=== PATIENT | female | born 1955 | race Asian ===

== ENCOUNTER 2019-09-27 14:10 | Inpatient (IN) | payer OTHER ==
[~2019-09-27] VITALS: Ht 157.5 cm; Wt 69.9 kg
[2019-09-27] MEDS ORDERED: BACL10TA PO (17:01)
[2019-09-27] MEDS ORDERED: DOCU100C36 PO (17:01)
[2019-09-27] MEDS ORDERED: CYAN-51 PO (17:01)
[2019-09-27] MEDS ORDERED: POLY17PO4 PO (17:01)
[2019-09-27] MEDS ORDERED: ATOR10TA PO (17:01)
[2019-09-27] MEDS ORDERED: LEVO25TA9 PO (17:01)
[2019-09-27] MEDS ORDERED: ENOX40DI SQ (17:01)
[2019-09-27] MEDS ORDERED: ACET-2154 PO (17:01)
[2019-09-27] MEDS ORDERED: OXYC5CAP18 PO (17:01)
[2019-09-27] MEDS ORDERED: TAMS-3 PO (17:01)
[2019-09-27] MEDS ORDERED: PYRI100T18 PO (17:01)
[2019-09-27] MEDS ORDERED: CHOL10002 PO (17:01)
[2019-09-27] MEDS ORDERED: GABA-534 PO (17:01)
[2019-09-27] MEDS ORDERED: METH-406 PO (17:01)
[2019-09-27] MEDS ORDERED: BISA10SU61 RC (17:01)
[2019-09-27] MEDS ORDERED: AMLO5TAB9 PO (17:01)
[2019-09-27] MEDS ORDERED: GABA-532 PO (17:01)
[2019-09-27] MEDS ORDERED: FOLI1CAP7 PO (17:01)
[2019-09-27] MEDS ORDERED: BISACODYL 10 MG SUPP.RECT RC PRN (17:45)
--- NOTE | 2019-09-27 18:08 | NUR ---
PATIENT S/P NEW ADMISSION AT 3:55PM VIA AMBULANCE WITH 2 EMT IN STABLE CONDITION. ALERT AND ORIENTED X4. NO COMPLAINT OF PAIN/DISCOMFORT. DX: S/P T4-6 MASS RESECTION, CORD COMPRESSION. ON ROOM AIR. NOT IN DISTRESS. SKIN INTACT EXCEPT FOR INCISION IN UPPER BACK WITH SUTURES. OPEN TO AIR. ON CONTROLLED CARBOHYDRATES. ASSESS BY THERAPIST. CONTINENT TO BOWEL AND BLADDER. AMBULATORY WITH ASSIST. TOLERATED WELL. WILL CONTINUE MONITOR
[2019-09-27] MEDS: METFORMIN HCL 500 MG TABLET PO SCH (19:21)
[2019-09-27] MEDS: METHOCARBAMOL 750 MG TABLET PO SCH (19:21)
[2019-09-27 19:27] VITALS: BP 121/77
--- NOTE | 2019-09-27 19:57 | NUR ---
Received patient in bed; AAO x4. Not in acute distress or SOB. Able to make needs known. On room air. No complaints of pain at this moment. Physical assessment done. Fall prevention observed. Safety measures maintained. Bed in low and lock position, alarm on, side rails up x2 for safety. Call light and frequently used items within reach. Will continue to monitor and give care.
[2019-09-27] MEDS: TAMSULOSIN HCL 0.4 MG CAP.SR.24H PO SCH (20:07)
[2019-09-27] MEDS: GABAPENTIN 300 MG CAPSULE PO SCH (20:13)
[2019-09-27] MEDS: ATORVASTATIN 10 MG TABLET PO SCH (20:13)
[2019-09-27] MEDS: ENOXAPARIN SODIUM 40 MG/0.4 ML DISP.SYRIN SQ SCH (20:14)
[2019-09-27 20:24] VITALS: BP 129/74
[2019-09-27] MEDS ORDERED: MAGNESIUM HYDROXIDE 30 ML LIQUID UDC PO PRN (21:00)
[2019-09-28] MEDS: METHOCARBAMOL 750 MG TABLET PO SCH ×5 (00:56→23:00)
[2019-09-28 04:30] VITALS: BP 130/77
[2019-09-28] MEDS: LEVOTHYROXINE SODIUM 100 MCG TABLET PO SCH (06:24)
[2019-09-28] MEDS ORDERED: LEVOTHYROXINE SODIUM 25 MCG TABLET PO SCH (07:30)
[2019-09-28] MEDS: DOCUSATE SODIUM 100 MG CAPSULE PO SCH ×2 (08:55→16:10)
[2019-09-28] MEDS: METFORMIN HCL 500 MG TABLET PO SCH ×2 (08:55→16:16)
[2019-09-28] MEDS: ACETAMINOPHEN 325 MG TABLET PO PRN (08:55)
[2019-09-28] MEDS: CHOLECALCIFEROL 1,000 UNIT TABLET PO SCH (08:56)
[2019-09-28] MEDS: AMLODIPINE 5 MG TABLET PO SCH (08:57)
[2019-09-28] MEDS: BACLOFEN 10 MG TABLET PO SCH ×3 (08:59→16:11)
[2019-09-28] MEDS ORDERED: FOLIC ACID/VITAMIN B COMP W-C TABLET PO SCH (09:00)
[2019-09-28] MEDS ORDERED: CYANOCOBALAMIN 1,000 MCG TABLET PO SCH (09:00)
[2019-09-28] MEDS: CYANOCOBALAMIN 100 MCG TABLET PO SCH (09:01)
[2019-09-28] MEDS: glipiZIDE 5 MG TABLET PO SCH (09:04)
[2019-09-28] MEDS: GABAPENTIN 100 MG CAPSULE PO SCH (09:04)
[2019-09-28] MEDS: PYRIDOXINE HCL 100 MG TABLET PO SCH (09:06)
[2019-09-28] MEDS: MIRALAX 17 GM POWD.PACK PO SCH (09:08)
[2019-09-28 09:40] VITALS: BP 116/70
--- NOTE | 2019-09-28 12:35 | NUR ---
C/O BURNING AND ITCHING WITH URGENCY AND FREQUENT URINATION. NOTIFIED MD ORDER FOR UA/C&S. NOTIFIED PT
[2019-09-28] MEDS ORDERED: FOLIC ACID 1MG PO (14:48)
[2019-09-28 15:52] VITALS: BP 111/66
[2019-09-28 16:58] LABS: *BILIRUBIN,URIN NEGATIVE (NEGATIVE); *BLOOD, URINE NEGATIVE (NEGATIVE); *CLARITY,URINE SLIGHTLY CLOUDY (CLEAR); *COLOR,URINE YELLOW (YELLOW); *KETONES,URINE TRACE (NEGATIVE); *UROBILINOGEN,URINE 0.2 E.U./dl (NORMAL); BACTERIA,URINE FEW /HPF (NONE SEEN); LEUKOCYTE ESTERASE ,URINE TRACE (NEGATIVE); NITRITE, URINE NEGATIVE (NEGATIVE); RBC,URINE 0-3 /HPF (0-3); SQUAMOUS EPITHELIAL CELL,UR MODERATE /HPF (NONE SEEN); UGLUCOSE NEGATIVE (NEGATIVE)
[2019-09-28 19:32] VITALS: BP 135/75
[2019-09-28] MEDS: GABAPENTIN 300 MG CAPSULE PO SCH (20:34)
[2019-09-28] MEDS: ATORVASTATIN 10 MG TABLET PO SCH (20:34)
[2019-09-28] MEDS: NITROFURANTOIN/NITROFURAN MAC 100 MG CAPSULE PO SCH (20:34)
[2019-09-28] MEDS: TAMSULOSIN HCL 0.4 MG CAP.SR.24H PO SCH (20:34)
[2019-09-28] MEDS: ENOXAPARIN SODIUM 40 MG/0.4 ML DISP.SYRIN SQ SCH (20:44)
[2019-09-29 06:00] VITALS: BP 108/69
[2019-09-29] MEDS: LEVOTHYROXINE SODIUM 100 MCG TABLET PO SCH (06:38)
[2019-09-29] MEDS: METHOCARBAMOL 750 MG TABLET PO SCH ×3 (06:38→18:09)
[2019-09-29 07:08] LABS: BASOPHILS % (AUTO) 0.4 % (0.0-2.0); EOSINOPHILS # (AUTO) 0.3 K/uL (0.0-0.7); EOSINOPHILS % (AUTO) 3.3 % (0.0-7.0); HEMATOCRIT 27.8 % (31.2-41.9); HEMOGLOBIN 9.2 g/dL (10.9-14.3); LYMPHOCYTES # (AUTO) 2.1 K/uL (20.0-40.0); LYMPHOCYTES % (AUTO) 24.4 % (20.5-51.5); MEAN CORPUSCULAR HEMOGLOBIN 30.4 uug (24.7-32.8); MEAN CORPUSCULAR HGB CONC 33 g/dL (32.3-35.6); MEAN CORPUSCULAR VOLUME 92.3 fL (75.5-95.3); MONOCYTES # (AUTO) 0.5 K/uL (2.0-10.0); MONOCYTES % (AUTO) 6.4 % (0.0-11.0); NEUTROPHILS # (AUTO) 5.6 K/uL (1.8-8.9); NEUTROPHILS % (AUTO) 65.5 % (38.5-71.5); PLATELET COUNT (AUTO) 241 K/uL (179-408); RED BLOOD CELL COUNT(AUTO) 3.01 MIL/uL (3.63-4.92); WHITE BLOOD COUNT (AUTO) 8.5 K/uL (3.8-11.8)
[2019-09-29 07:23] LABS: THYROID STIMULATING HORMONE 22.836 mIU/mL (0.358-3.740)
[2019-09-29 07:40] LABS: BILIRUBIN,TOTAL 0.7 mg/dL (0.2-1.0); CREATININE 0.8 mg/dL (0.6-1.3); MAGNESIUM 1.7 mg/dL (1.8-2.4); PHOSPHOROUS 3.3 mg/dL (2.5-4.9); POTASSIUM 3.8 mmol/L (3.5-5.1); TOTAL PROTEIN, SERUM 6.2 g/dL (6.4-8.2)
[2019-09-29] MEDS ORDERED: INSULIN REGULAR, HUMAN 300 UNIT/3 ML VIAL SQ PRN (07:45)
[2019-09-29] MEDS ORDERED: DEXTROSE 50% 50 ML DISP.SYRIN IV PRN (07:45)
[2019-09-29] MEDS: glipiZIDE 5 MG TABLET PO SCH (09:00)
[2019-09-29] MEDS: AMLODIPINE 5 MG TABLET PO SCH (09:00)
[2019-09-29] MEDS: MIRALAX 17 GM POWD.PACK PO SCH (09:00)
[2019-09-29] MEDS: METFORMIN HCL 500 MG TABLET PO SCH ×2 (09:12→18:09)
[2019-09-29] MEDS: NITROFURANTOIN/NITROFURAN MAC 100 MG CAPSULE PO SCH ×2 (09:13→20:20)
[2019-09-29] MEDS: BACLOFEN 10 MG TABLET PO SCH ×3 (09:14→18:09)
[2019-09-29] MEDS: GABAPENTIN 100 MG CAPSULE PO SCH (09:14)
[2019-09-29] MEDS: DOCUSATE SODIUM 100 MG CAPSULE PO SCH ×2 (09:24→18:09)
[2019-09-29] MEDS: FERROUS GLUCONATE 324 MG TABLET PO SCH ×2 (09:25→20:33)
[2019-09-29] MEDS: PYRIDOXINE HCL 100 MG TABLET PO SCH (09:26)
[2019-09-29] MEDS: CHOLECALCIFEROL 1,000 UNIT TABLET PO SCH (09:27)
[2019-09-29] MEDS: CYANOCOBALAMIN 100 MCG TABLET PO SCH (09:27)
[2019-09-29] MEDS: FOLIC ACID 1 MG TABLET PO SCH (10:46)
[2019-09-29] MEDS: BLOOD SUGAR DIAGNOSTIC 1 EACH STRIP VI SCH ×3 (11:37→20:24)
[2019-09-29] MEDS ORDERED: MAGNESIUM OXIDE 400 MG TABLET PO ONE (12:00)
[2019-09-29 14:00] VITALS: BP 117/67
--- NOTE | 2019-09-29 19:30 | NUR ---
Patient received in chair. Alert and oriented x 4. States that she is unable to make it to the bathroom without peeing herself. Suggested diaper for patient just increase she isn't able to make it to the bathroom again, and patient agreed. Assisted to bed. C/O pain in back. Will medicate. Surgical site clean and opened to air. No redness noted. Call light and frequently used items within reach. Will continue to monitor.
[2019-09-29 19:44] VITALS: BP 129/82
[2019-09-29] MEDS: GABAPENTIN 300 MG CAPSULE PO SCH (20:20)
[2019-09-29] MEDS: TAMSULOSIN HCL 0.4 MG CAP.SR.24H PO SCH (20:20)
[2019-09-29] MEDS: ATORVASTATIN 10 MG TABLET PO SCH (20:20)
[2019-09-29] MEDS: ENOXAPARIN SODIUM 40 MG/0.4 ML DISP.SYRIN SQ SCH (20:29)
[2019-09-30] MEDS: METHOCARBAMOL 750 MG TABLET PO SCH ×5 (00:53→23:47)
[2019-09-30 05:30] VITALS: BP 124/72
[2019-09-30] MEDS ORDERED: LEVOTHYROXINE SODIUM 125 MCG TABLET ONE (06:23)
[2019-09-30] MEDS: LEVOTHYROXINE SODIUM 125 MCG TABLET PO SCH (06:28)
[2019-09-30] MEDS: BLOOD SUGAR DIAGNOSTIC 1 EACH STRIP VI SCH ×4 (06:33→21:19)
[2019-09-30] MEDS ORDERED: glipiZIDE 5 MG TABLET PO SCH (07:00)
[2019-09-30] MEDS: METFORMIN HCL 500 MG TABLET PO SCH ×2 (08:45→18:13)
[2019-09-30] MEDS: CHOLECALCIFEROL 1,000 UNIT TABLET PO SCH (08:45)
[2019-09-30] MEDS: DOCUSATE SODIUM 100 MG CAPSULE PO SCH ×2 (08:45→18:14)
[2019-09-30] MEDS: PYRIDOXINE HCL 100 MG TABLET PO SCH (08:46)
[2019-09-30] MEDS: AMLODIPINE 5 MG TABLET PO SCH (08:46)
[2019-09-30] MEDS: GABAPENTIN 100 MG CAPSULE PO SCH (08:47)
[2019-09-30] MEDS: FOLIC ACID 1 MG TABLET PO SCH (08:47)
[2019-09-30] MEDS: CYANOCOBALAMIN 100 MCG TABLET PO SCH (08:47)
[2019-09-30] MEDS: NITROFURANTOIN/NITROFURAN MAC 100 MG CAPSULE PO SCH ×2 (08:48→21:16)
[2019-09-30] MEDS: FERROUS GLUCONATE 324 MG TABLET PO SCH ×2 (08:48→21:17)
[2019-09-30] MEDS: BACLOFEN 10 MG TABLET PO SCH ×3 (08:48→17:00)
[2019-09-30] MEDS: OXYCODONE/APAP 5-325 MG TABLET PO PRN (08:55)
[2019-09-30] MEDS: MIRALAX 17 GM POWD.PACK PO SCH (09:21)
--- NOTE | 2019-09-30 10:15 | NUR ---
INDIVIDUALIZE OVERALL PLAN OF CARE
--- NOTE | 2019-09-30 19:30 | NUR ---
Received patient awake, alert and orient x 4, verbally responsive. standing beside her bed with FWW in front of her. Denies any pain/discomforts at this time. Safety measures and fall prevention observed. Continue care as planned.
[2019-09-30 20:32] VITALS: BP 113/62
[2019-09-30] MEDS: ENOXAPARIN SODIUM 40 MG/0.4 ML DISP.SYRIN SQ SCH (21:15)
[2019-09-30] MEDS: ATORVASTATIN 10 MG TABLET PO SCH (21:16)
[2019-09-30] MEDS: TAMSULOSIN HCL 0.4 MG CAP.SR.24H PO SCH (21:16)
[2019-09-30] MEDS: GABAPENTIN 300 MG CAPSULE PO SCH (21:16)
[2019-10-01] MEDS: METHOCARBAMOL 750 MG TABLET PO SCH ×4 (05:53→23:27)
[2019-10-01] MEDS: LEVOTHYROXINE SODIUM 125 MCG TABLET PO SCH (06:00)
[2019-10-01] MEDS: BLOOD SUGAR DIAGNOSTIC 1 EACH STRIP VI SCH ×2 (06:01→11:08)
--- NOTE | 2019-10-01 06:13 | NUR ---
Shift End Report: Vs stable. BS WNL. No complaint of pain/discomforts presented. Slept good. No fall/injury reported. All needs attended and met. No significant event reported throughout the night. Had an early bed bath today, tolerated well. Continue current rehab plan of care.
[2019-10-01] MEDS ORDERED: glipiZIDE 5 MG TABLET PO SCH (07:00)
[2019-10-01 07:12] VITALS: BP 115/74
[2019-10-01 08:13] VITALS: BP 122/71
[2019-10-01] MEDS: GABAPENTIN 100 MG CAPSULE PO SCH (08:18)
[2019-10-01] MEDS: METFORMIN HCL 500 MG TABLET PO SCH ×2 (08:18→17:01)
[2019-10-01] MEDS: AMLODIPINE 5 MG TABLET PO SCH (08:18)
[2019-10-01] MEDS: CHOLECALCIFEROL 1,000 UNIT TABLET PO SCH (08:18)
[2019-10-01] MEDS: FOLIC ACID 1 MG TABLET PO SCH (08:18)
[2019-10-01] MEDS: FERROUS GLUCONATE 324 MG TABLET PO SCH ×2 (08:19→20:32)
[2019-10-01] MEDS: PYRIDOXINE HCL 100 MG TABLET PO SCH (08:19)
[2019-10-01] MEDS: BACLOFEN 10 MG TABLET PO SCH ×3 (08:19→16:15)
[2019-10-01] MEDS: MIRALAX 17 GM POWD.PACK PO SCH (08:19)
[2019-10-01] MEDS: DOCUSATE SODIUM 100 MG CAPSULE PO SCH ×2 (08:19→16:15)
[2019-10-01] MEDS: CYANOCOBALAMIN 100 MCG TABLET PO SCH (08:20)
--- NOTE | 2019-10-01 12:47 | NUR ---
Received patient awake in bed in stable condition. Continue therapy for ambulation and ADL ability. Continue pain management if needed. tolerated well. not in distress. will continue monitor
[2019-10-01] MEDS: HYDROCHLOROTHIAZIDE 12.5 MG CAPSULE PO SCH (13:13)
--- NOTE | 2019-10-01 16:06 | NUR ---
Patient complaint of chest pain. MD Broderick notified. ordered EKG and troponin STAR. EKG done with sinus rhythm result. no complaint of pain/discomfort as of this time. will continue monitor
[2019-10-01 16:30] VITALS: BP 123/71
[2019-10-01] MEDS: OXYCODONE/APAP 5-325 MG TABLET PO PRN (18:35)
--- NOTE | 2019-10-01 19:30 | NUR ---
Sleeping during initial rounds. No s/s of respiratory distress noted. HOB slightly elevated. Safety measure and fall prevention maintained. Continue care as planned.
[2019-10-01 19:50] VITALS: BP 117/70
[2019-10-01] MEDS: ATORVASTATIN 10 MG TABLET PO SCH (20:32)
[2019-10-01] MEDS: TAMSULOSIN HCL 0.4 MG CAP.SR.24H PO SCH (20:32)
[2019-10-01] MEDS: ENOXAPARIN SODIUM 40 MG/0.4 ML DISP.SYRIN SQ SCH (20:32)
[2019-10-01] MEDS: GABAPENTIN 300 MG CAPSULE PO SCH (20:32)
[2019-10-02 04:35] VITALS: BP 110/65
[2019-10-02] MEDS: METHOCARBAMOL 750 MG TABLET PO SCH ×4 (06:10→23:19)
[2019-10-02] MEDS: LEVOTHYROXINE SODIUM 125 MCG TABLET PO SCH (06:10)
--- NOTE | 2019-10-02 06:44 | NUR ---
Shift End Report: VS stable. Slept well. No complaint presented all night. All needs attended and met. No significant event reported. Continue current rehab plan of care.
[2019-10-02] MEDS: FOLIC ACID 1 MG TABLET PO SCH (08:17)
[2019-10-02] MEDS: METFORMIN HCL 500 MG TABLET PO SCH ×2 (08:18→17:33)
[2019-10-02] MEDS: CHOLECALCIFEROL 1,000 UNIT TABLET PO SCH (08:20)
[2019-10-02] MEDS: MIRALAX 17 GM POWD.PACK PO SCH (08:22)
[2019-10-02] MEDS: OXYCODONE/APAP 5-325 MG TABLET PO PRN (08:22)
[2019-10-02] MEDS: glipiZIDE 5 MG TABLET PO SCH (08:23)
[2019-10-02] MEDS: FERROUS GLUCONATE 324 MG TABLET PO SCH ×2 (08:24→20:44)
[2019-10-02] MEDS: CYANOCOBALAMIN 100 MCG TABLET PO SCH (08:24)
[2019-10-02] MEDS: BACLOFEN 10 MG TABLET PO SCH ×3 (08:25→17:33)
[2019-10-02] MEDS: GABAPENTIN 100 MG CAPSULE PO SCH (08:25)
[2019-10-02] MEDS: PYRIDOXINE HCL 100 MG TABLET PO SCH (08:26)
[2019-10-02] MEDS: DOCUSATE SODIUM 100 MG CAPSULE PO SCH ×2 (08:26→17:33)
[2019-10-02] MEDS: AMLODIPINE 5 MG TABLET PO SCH (09:00)
[2019-10-02 16:10] VITALS: BP 99/55
--- NOTE | 2019-10-02 19:30 | NUR ---
Received patient in bed, awake, denied any pain/discomforts at this time. Denied lightheadedness/dizziness at this time. Safety measures and fall prevention maintained. Continue care as planned.
[2019-10-02 20:41] VITALS: BP 114/60
[2019-10-02] MEDS: ATORVASTATIN 10 MG TABLET PO SCH (20:44)
[2019-10-02] MEDS: TAMSULOSIN HCL 0.4 MG CAP.SR.24H PO SCH (20:44)
[2019-10-02] MEDS: GABAPENTIN 300 MG CAPSULE PO SCH (20:44)
[2019-10-02] MEDS: ENOXAPARIN SODIUM 40 MG/0.4 ML DISP.SYRIN SQ SCH (20:45)
--- NOTE | 2019-10-03 05:20 | NUR ---
Shift End Report: Vs stable. Slept good. No complaint reported all night. All needs attended and met. No significant event reported all night. Continue current rehab plan of care.
[2019-10-03] MEDS: METHOCARBAMOL 750 MG TABLET PO SCH ×3 (05:40→17:23)
[2019-10-03 05:50] VITALS: BP 116/68
[2019-10-03] MEDS: LEVOTHYROXINE SODIUM 125 MCG TABLET PO SCH (06:11)
[2019-10-03 07:48] VITALS: BP 148/58
[2019-10-03] MEDS: METFORMIN HCL 500 MG TABLET PO SCH ×2 (08:21→17:22)
[2019-10-03] MEDS: DOCUSATE SODIUM 100 MG CAPSULE PO SCH ×2 (08:21→17:00)
[2019-10-03] MEDS: MIRALAX 17 GM POWD.PACK PO SCH (08:22)
[2019-10-03] MEDS: CHOLECALCIFEROL 1,000 UNIT TABLET PO SCH (08:22)
[2019-10-03] MEDS: FOLIC ACID 1 MG TABLET PO SCH (08:24)
[2019-10-03] MEDS: GABAPENTIN 100 MG CAPSULE PO SCH (08:26)
[2019-10-03] MEDS: glipiZIDE 5 MG TABLET PO SCH (08:26)
[2019-10-03] MEDS: FERROUS GLUCONATE 324 MG TABLET PO SCH ×2 (08:28→20:57)
[2019-10-03] MEDS: CYANOCOBALAMIN 100 MCG TABLET PO SCH (08:30)
[2019-10-03] MEDS: HYDROCHLOROTHIAZIDE 12.5 MG CAPSULE PO SCH (08:31)
[2019-10-03] MEDS: PYRIDOXINE HCL 100 MG TABLET PO SCH (08:32)
[2019-10-03] MEDS: AMLODIPINE 5 MG TABLET PO SCH (08:32)
[2019-10-03] MEDS: OXYCODONE/APAP 5-325 MG TABLET PO PRN (08:39)
[2019-10-03 15:33] VITALS: BP 110/64
--- NOTE | 2019-10-03 17:39 | NUR ---
Patient alert, oriented x 4, not in any form of distress. No significant change noted during the shift. Patient complained of back pain and given PRN pain medication as ordered with noted relief. Given PRN MOM for no BM x 3 days and noted BM. Needs attended to promptly and met. Call light and frequently used items placed within reach.
--- NOTE | 2019-10-03 19:30 | NUR ---
Patient received in chair. Alert and oriented x 4. Assisted to bed. No C/O pain or SOB at this time. Surgical site clean and opened to air. No redness noted. Call light and frequently used items within reach. Will continue to monitor.
[2019-10-03 20:25] VITALS: BP 100/53
[2019-10-03] MEDS: TAMSULOSIN HCL 0.4 MG CAP.SR.24H PO SCH (20:57)
[2019-10-03] MEDS: ATORVASTATIN 10 MG TABLET PO SCH (20:58)
[2019-10-03] MEDS: GABAPENTIN 300 MG CAPSULE PO SCH (20:58)
[2019-10-03] MEDS: ENOXAPARIN SODIUM 40 MG/0.4 ML DISP.SYRIN SQ SCH (21:01)
[2019-10-04] MEDS: METHOCARBAMOL 750 MG TABLET PO SCH ×4 (00:40→17:01)
[2019-10-04 05:51] VITALS: BP 100/62
[2019-10-04] MEDS: LEVOTHYROXINE SODIUM 125 MCG TABLET PO SCH (06:06)
[2019-10-04 07:55] VITALS: BP 98/60
[2019-10-04] MEDS: METFORMIN HCL 500 MG TABLET PO SCH ×2 (08:37→17:01)
[2019-10-04] MEDS: FERROUS GLUCONATE 324 MG TABLET PO SCH ×2 (08:37→20:39)
[2019-10-04] MEDS: CYANOCOBALAMIN 100 MCG TABLET PO SCH (08:37)
[2019-10-04] MEDS: ACETAMINOPHEN 325 MG TABLET PO PRN (08:38)
[2019-10-04] MEDS: CHOLECALCIFEROL 1,000 UNIT TABLET PO SCH (08:38)
[2019-10-04] MEDS: DOCUSATE SODIUM 100 MG CAPSULE PO SCH ×2 (08:38→16:57)
[2019-10-04] MEDS: PYRIDOXINE HCL 100 MG TABLET PO SCH (08:39)
[2019-10-04] MEDS: GABAPENTIN 100 MG CAPSULE PO SCH (08:39)
[2019-10-04] MEDS: glipiZIDE 5 MG TABLET PO SCH (08:39)
[2019-10-04] MEDS: AMLODIPINE 5 MG TABLET PO SCH (08:40)
[2019-10-04] MEDS: MIRALAX 17 GM POWD.PACK PO SCH (08:42)
[2019-10-04] MEDS: FOLIC ACID 1 MG TABLET PO SCH (09:12)
--- NOTE | 2019-10-04 10:33 | NUR ---
INTERDISCIPLINARY TEAM CONFERENCE
--- NOTE | 2019-10-04 15:07 | NUR ---
Received patient awake in bed in stable condition. Continue pain management prior to therapy and if needed. not in distress. will continue monitor
[2019-10-04 16:25] VITALS: BP 104/65
--- NOTE | 2019-10-04 19:30 | NUR ---
Patient alert and oriented x 4. Assisted to bed. No C/O pain or SOB at this time. Surgical site clean and opened to air. No redness noted. Patient requesting gas relief medication. Will contact MD. Call light and frequently used items within reach. Will continue to monitor.
[2019-10-04] MEDS: TAMSULOSIN HCL 0.4 MG CAP.SR.24H PO SCH (20:39)
[2019-10-04] MEDS: GABAPENTIN 300 MG CAPSULE PO SCH (20:39)
[2019-10-04] MEDS: ATORVASTATIN 10 MG TABLET PO SCH (20:39)
[2019-10-04] MEDS: ENOXAPARIN SODIUM 40 MG/0.4 ML DISP.SYRIN SQ SCH (20:45)
[2019-10-04 21:05] VITALS: BP 104/69
[2019-10-04] MEDS: SIMETHICONE 80 MG TAB.CHEW PO PRN (21:35)
[2019-10-05] MEDS: METHOCARBAMOL 750 MG TABLET PO SCH ×4 (00:11→17:01)
[2019-10-05 05:31] VITALS: BP 111/66
[2019-10-05] MEDS: LEVOTHYROXINE SODIUM 125 MCG TABLET PO SCH (06:12)
[2019-10-05 08:01] VITALS: BP 110/67
[2019-10-05] MEDS: ACETAMINOPHEN 325 MG TABLET PO PRN (08:13)
[2019-10-05] MEDS: AMLODIPINE 5 MG TABLET PO SCH (08:14)
[2019-10-05] MEDS: CHOLECALCIFEROL 1,000 UNIT TABLET PO SCH (08:14)
[2019-10-05] MEDS: GABAPENTIN 100 MG CAPSULE PO SCH (08:15)
[2019-10-05] MEDS: FERROUS GLUCONATE 324 MG TABLET PO SCH ×2 (08:15→20:00)
[2019-10-05] MEDS: PYRIDOXINE HCL 100 MG TABLET PO SCH (08:15)
[2019-10-05] MEDS: glipiZIDE 5 MG TABLET PO SCH (08:16)
[2019-10-05] MEDS: METFORMIN HCL 500 MG TABLET PO SCH ×2 (08:16→17:01)
[2019-10-05] MEDS: FOLIC ACID 1 MG TABLET PO SCH (08:16)
[2019-10-05] MEDS: DOCUSATE SODIUM 100 MG CAPSULE PO SCH ×2 (08:16→17:00)
[2019-10-05] MEDS: HYDROCHLOROTHIAZIDE 12.5 MG CAPSULE PO SCH (08:19)
[2019-10-05] MEDS: MIRALAX 17 GM POWD.PACK PO SCH (08:19)
[2019-10-05] MEDS: CYANOCOBALAMIN 100 MCG TABLET PO SCH (08:25)
--- NOTE | 2019-10-05 14:41 | NUR ---
Patient c/o dizziness and fatigue. BS check, and found to <50. Juice and sandwish given. Rechecked 10 minutes later. Found to 68. More juice, crackers, and sandwiches given. BS rechecked another 10 minutes later and found to be 99. Will continue to monitor.
[2019-10-05 15:06] VITALS: BP 126/71
--- NOTE | 2019-10-05 16:05 | NUR ---
Received patient in WC; AAO x4. Not in acute distress or SOB. Able to make needs known. On room air. No complaints of pain at this moment. Physical assessment done. Fall prevention observed. Safety measures maintained. Call light and frequently used items within reach. Will continue to monitor and give care.
[2019-10-05 19:57] VITALS: BP 103/57
[2019-10-05] MEDS: ATORVASTATIN 10 MG TABLET PO SCH (20:00)
[2019-10-05] MEDS: TAMSULOSIN HCL 0.4 MG CAP.SR.24H PO SCH (20:00)
[2019-10-05] MEDS: GABAPENTIN 300 MG CAPSULE PO SCH (20:00)
[2019-10-05] MEDS: ENOXAPARIN SODIUM 40 MG/0.4 ML DISP.SYRIN SQ SCH (20:04)
--- NOTE | 2019-10-06 00:23 | NUR ---
Patient refused Robaxin x3 times; explained risks and benefits, still refused. Will monitor patient
[2019-10-06 04:00] VITALS: BP 111/67
[2019-10-06] MEDS: METHOCARBAMOL 750 MG TABLET PO SCH ×5 (06:13→23:24)
[2019-10-06] MEDS: LEVOTHYROXINE SODIUM 125 MCG TABLET PO SCH (06:13)
[2019-10-06] MEDS: DOCUSATE SODIUM 100 MG CAPSULE PO SCH ×2 (08:30→17:34)
[2019-10-06] MEDS: FERROUS GLUCONATE 324 MG TABLET PO SCH ×2 (08:30→20:29)
[2019-10-06] MEDS: METFORMIN HCL 500 MG TABLET PO SCH ×2 (08:30→17:34)
[2019-10-06] MEDS: FOLIC ACID 1 MG TABLET PO SCH (08:31)
[2019-10-06] MEDS: glipiZIDE 5 MG TABLET PO SCH (08:32)
[2019-10-06] MEDS: MIRALAX 17 GM POWD.PACK PO SCH (08:32)
[2019-10-06] MEDS: AMLODIPINE 5 MG TABLET PO SCH (08:33)
[2019-10-06] MEDS: GABAPENTIN 100 MG CAPSULE PO SCH (08:33)
[2019-10-06] MEDS: CYANOCOBALAMIN 100 MCG TABLET PO SCH (08:33)
[2019-10-06] MEDS: PYRIDOXINE HCL 100 MG TABLET PO SCH (08:34)
[2019-10-06] MEDS: CHOLECALCIFEROL 1,000 UNIT TABLET PO SCH (08:34)
[2019-10-06 08:44] VITALS: BP 113/71
[2019-10-06 16:00] VITALS: BP 114/52
[2019-10-06 20:09] VITALS: BP 107/62
[2019-10-06] MEDS: GABAPENTIN 300 MG CAPSULE PO SCH (20:28)
[2019-10-06] MEDS: ATORVASTATIN 10 MG TABLET PO SCH (20:28)
[2019-10-06] MEDS: TAMSULOSIN HCL 0.4 MG CAP.SR.24H PO SCH (20:28)
[2019-10-06] MEDS: SIMETHICONE 80 MG TAB.CHEW PO PRN (20:28)
[2019-10-06] MEDS: ENOXAPARIN SODIUM 40 MG/0.4 ML DISP.SYRIN SQ SCH (20:35)
--- NOTE | 2019-10-06 21:22 | NUR ---
resting in bed upon rounds. aaox4 OOB to the BR Voiding freely. Needs attended. VSS Fall precautions maintained. Siderails up for safety. Upper back incision JULISSA with sutures intact.Denies any pain nor any discomfort at this time. Will monitor patient.
[2019-10-07 05:47] VITALS: BP 109/64
[2019-10-07] MEDS: LEVOTHYROXINE SODIUM 125 MCG TABLET PO SCH (06:09)
[2019-10-07] MEDS: METHOCARBAMOL 750 MG TABLET PO SCH ×4 (06:17→23:17)
--- NOTE | 2019-10-07 06:31 | NUR ---
quiet night. slept well most of the shift. no complaints presented during shift. ambulates to the BR with walker with supervision. Voiding well. Needs attended. fall precautions maintained. Tolerated po meds well. No acute distress noted. VSS.
[2019-10-07] MEDS: DOCUSATE SODIUM 100 MG CAPSULE PO SCH ×2 (08:38→17:39)
[2019-10-07] MEDS: CHOLECALCIFEROL 1,000 UNIT TABLET PO SCH (08:38)
[2019-10-07] MEDS: FOLIC ACID 1 MG TABLET PO SCH (08:38)
[2019-10-07] MEDS: METFORMIN HCL 500 MG TABLET PO SCH ×2 (08:38→17:39)
[2019-10-07] MEDS: AMLODIPINE 5 MG TABLET PO SCH (08:38)
[2019-10-07] MEDS: GABAPENTIN 100 MG CAPSULE PO SCH (08:39)
[2019-10-07] MEDS: FERROUS GLUCONATE 324 MG TABLET PO SCH ×2 (08:39→20:30)
[2019-10-07] MEDS: MIRALAX 17 GM POWD.PACK PO SCH (08:40)
[2019-10-07] MEDS: HYDROCHLOROTHIAZIDE 12.5 MG CAPSULE PO SCH (08:41)
[2019-10-07] MEDS: CYANOCOBALAMIN 100 MCG TABLET PO SCH (08:41)
[2019-10-07] MEDS: PYRIDOXINE HCL 100 MG TABLET PO SCH (08:42)
[2019-10-07 09:53] VITALS: BP 117/71
[2019-10-07 16:00] VITALS: BP 122/69
[2019-10-07] MEDS: ACETAMINOPHEN 325 MG TABLET PO PRN (17:40)
[2019-10-07 19:28] VITALS: BP 120/69
--- NOTE | 2019-10-07 19:49 | NUR ---
resting in bed upon initial rounds. aaox4 OOB to the BR with walker. voiding freely. Needs attended. VSS. kept comfortable. Denies any pain nor any discomfort. Will monitor patient. Fall precautions maintained. Siderails up for safety. Call pelaez within reach.
[2019-10-07] MEDS: ATORVASTATIN 10 MG TABLET PO SCH (20:30)
[2019-10-07] MEDS: TAMSULOSIN HCL 0.4 MG CAP.SR.24H PO SCH (20:30)
[2019-10-07] MEDS: GABAPENTIN 300 MG CAPSULE PO SCH (20:30)
[2019-10-07] MEDS: ENOXAPARIN SODIUM 40 MG/0.4 ML DISP.SYRIN SQ SCH (20:38)
[2019-10-08] MEDS: METHOCARBAMOL 750 MG TABLET PO SCH ×4 (06:00→18:01)
[2019-10-08] MEDS: FERROUS GLUCONATE 324 MG TABLET PO SCH ×2 (08:28→21:00)
[2019-10-08] MEDS: METFORMIN HCL 500 MG TABLET PO SCH ×2 (08:28→18:01)
[2019-10-08] MEDS: DOCUSATE SODIUM 100 MG CAPSULE PO SCH ×2 (08:28→16:07)
[2019-10-08] MEDS: GABAPENTIN 100 MG CAPSULE PO SCH (08:28)
[2019-10-08] MEDS: FOLIC ACID 1 MG TABLET PO SCH (08:29)
[2019-10-08] MEDS: AMLODIPINE 5 MG TABLET PO SCH (08:30)
[2019-10-08] MEDS: MIRALAX 17 GM POWD.PACK PO SCH (08:30)
[2019-10-08] MEDS: CYANOCOBALAMIN 100 MCG TABLET PO SCH (08:31)
[2019-10-08 08:32] VITALS: BP 136/76
[2019-10-08] MEDS: CHOLECALCIFEROL 1,000 UNIT TABLET PO SCH (08:33)
[2019-10-08] MEDS: PYRIDOXINE HCL 100 MG TABLET PO SCH (08:34)
--- NOTE | 2019-10-08 10:54 | NUR ---
Received patient awake in stable condition. Continue therapy for ADL activity. tolerated well. Continue pain management if needed. Continue amlodipine routinely for HTN- given. not in distress. will continue monitor
[2019-10-08] MEDS: ACETAMINOPHEN 325 MG TABLET PO PRN (11:37)
[2019-10-08] MEDS: LISINOPRIL 10 MG TABLET PO SCH (12:34)
[2019-10-08 15:01] VITALS: BP 126/72
--- NOTE | 2019-10-08 16:38 | NUR ---
Medication during night time did not document in the system around 2am-7am, due to downtime. Documented in the paper as per endorse and attached to chart
--- NOTE | 2019-10-08 19:30 | NUR ---
pt in stable condition. Denies any pain, AXo x4. No fever, no nausea and no vomiting. Pt resting comfortably in bed. will continue to monitor
[2019-10-08 21:06] VITALS: BP 105/59
[2019-10-08] MEDS: GABAPENTIN 300 MG CAPSULE PO SCH (21:06)
[2019-10-08] MEDS: ATORVASTATIN 10 MG TABLET PO SCH (21:06)
[2019-10-08] MEDS: TAMSULOSIN HCL 0.4 MG CAP.SR.24H PO SCH (21:06)
[2019-10-09] MEDS: METHOCARBAMOL 750 MG TABLET PO SCH ×4 (00:33→17:12)
--- NOTE | 2019-10-09 05:36 | NUR ---
No acute events overnight. pt able to sleep comfortably during shift. Denies any pain. Pt is aware of her Dr's appointment today @0922. will have an early breakfast. setup technician time is 9:45 am
[2019-10-09 06:07] VITALS: BP 104/62
[2019-10-09] MEDS: LEVOTHYROXINE SODIUM 125 MCG TABLET PO SCH ×2 (06:38→06:39)
[2019-10-09] MEDS: CHOLECALCIFEROL 1,000 UNIT TABLET PO SCH (08:04)
[2019-10-09] MEDS: GABAPENTIN 100 MG CAPSULE PO SCH (08:04)
[2019-10-09] MEDS: METFORMIN HCL 500 MG TABLET PO SCH ×2 (08:04→17:12)
[2019-10-09] MEDS: FERROUS GLUCONATE 324 MG TABLET PO SCH ×2 (08:04→21:24)
[2019-10-09] MEDS: CYANOCOBALAMIN 100 MCG TABLET PO SCH (08:04)
[2019-10-09] MEDS: FOLIC ACID 1 MG TABLET PO SCH (08:05)
[2019-10-09] MEDS: HYDROCHLOROTHIAZIDE 12.5 MG CAPSULE PO SCH (08:06)
[2019-10-09] MEDS: DOCUSATE SODIUM 100 MG CAPSULE PO SCH ×2 (08:06→17:00)
[2019-10-09] MEDS: AMLODIPINE 5 MG TABLET PO SCH (08:07)
[2019-10-09] MEDS: LISINOPRIL 10 MG TABLET PO SCH (08:07)
[2019-10-09] MEDS: MIRALAX 17 GM POWD.PACK PO SCH (08:07)
[2019-10-09] MEDS: PYRIDOXINE HCL 100 MG TABLET PO SCH (08:08)
[2019-10-09 08:13] VITALS: BP 111/67
[2019-10-09] MEDS: ACETAMINOPHEN 325 MG TABLET PO PRN (12:55)
--- NOTE | 2019-10-09 19:04 | NUR ---
PATIENT IS ALERT, ORIENTED X4, AMBULATORY WITH CANE, STEADY GAIT, NO SOB,RESP EVEN NONLABORED,SKIN WARM AND DRY TO TOUCH, NO ACUTE DISTRESS NOTED, PATIENT WENT OUT FOR APT AND CAME BACK, WITH ORDER TO FOLLOW UP IN TWO AND HALF MONTHS.
--- NOTE | 2019-10-09 19:32 | NUR ---
Awake, sitting on the chair during initial rounds. Denied any pain/discomforts at this time. Upper back incision with steri strips dry and intact. Ambulatory to the BR with walker with slow but steady gait. Safety measures and fall precaution maintained. Continue care as planned.
[2019-10-09 19:54] VITALS: BP 109/63
[2019-10-09] MEDS: TAMSULOSIN HCL 0.4 MG CAP.SR.24H PO SCH (21:24)
[2019-10-09] MEDS: GABAPENTIN 300 MG CAPSULE PO SCH (21:24)
[2019-10-09] MEDS: ATORVASTATIN 10 MG TABLET PO SCH (21:24)
[2019-10-10] MEDS: METHOCARBAMOL 750 MG TABLET PO SCH ×5 (00:34→23:43)
--- NOTE | 2019-10-10 05:53 | NUR ---
Shift End Report; VS stable. No complaint presented all night. Slept well. All needs attended and met. No significant event reported throughout the night. Continue current rehab plan of care.
[2019-10-10] MEDS: LEVOTHYROXINE SODIUM 125 MCG TABLET PO SCH (06:07)
[2019-10-10 06:21] VITALS: BP 108/60
[2019-10-10 08:00] VITALS: BP 100/55
[2019-10-10] MEDS: GABAPENTIN 100 MG CAPSULE PO SCH (08:15)
[2019-10-10] MEDS: FERROUS GLUCONATE 324 MG TABLET PO SCH ×2 (08:15→20:44)
[2019-10-10] MEDS: CHOLECALCIFEROL 1,000 UNIT TABLET PO SCH (08:16)
[2019-10-10] MEDS: PYRIDOXINE HCL 100 MG TABLET PO SCH (08:16)
[2019-10-10] MEDS: CYANOCOBALAMIN 100 MCG TABLET PO SCH (08:16)
[2019-10-10] MEDS: FOLIC ACID 1 MG TABLET PO SCH (08:18)
[2019-10-10] MEDS: DOCUSATE SODIUM 100 MG CAPSULE PO SCH ×2 (08:18→17:00)
[2019-10-10] MEDS: METFORMIN HCL 500 MG TABLET PO SCH ×2 (08:18→17:23)
[2019-10-10] MEDS: MIRALAX 17 GM POWD.PACK PO SCH (08:19)
[2019-10-10] MEDS: AMLODIPINE 5 MG TABLET PO SCH (09:37)
[2019-10-10] MEDS: LISINOPRIL 10 MG TABLET PO SCH (09:37)
--- NOTE | 2019-10-10 13:37 | NUR ---
Received patient awake in bed in stable condition. Continue pain management if needed. Ongoing therapy for ADL activity. For discharge tomorrow, Aware. TMS done. no complaint voiced during rounds. will continue monitor
[2019-10-10 15:56] VITALS: BP 120/69
[2019-10-10] MEDS: ACETAMINOPHEN 325 MG TABLET PO PRN (18:08)
--- NOTE | 2019-10-10 19:31 | NUR ---
Up walking inside the room with cane in slow unsteady gait. Denies any pain/discomforts at this time. re-instructed patient about safety measures and fall precaution. Continue care as planned.
[2019-10-10 19:43] VITALS: BP 106/65
[2019-10-10] MEDS: ATORVASTATIN 10 MG TABLET PO SCH (20:44)
[2019-10-10] MEDS: GABAPENTIN 300 MG CAPSULE PO SCH (20:44)
[2019-10-10] MEDS: TAMSULOSIN HCL 0.4 MG CAP.SR.24H PO SCH (20:44)
[2019-10-11] MEDS: METHOCARBAMOL 750 MG TABLET PO SCH ×2 (06:09→12:02)
[2019-10-11] MEDS: LEVOTHYROXINE SODIUM 125 MCG TABLET PO SCH (06:09)
[2019-10-11 06:21] VITALS: BP 116/66
--- NOTE | 2019-10-11 06:25 | NUR ---
Shift End Report: Vs stable. Slept good. No complaint presented all night. All needs attended and met. No significant event reported all night. Continue current rehab plan of care.
[2019-10-11 07:59] VITALS: BP 107/71
[2019-10-11] MEDS: CYANOCOBALAMIN 100 MCG TABLET PO SCH (08:13)
[2019-10-11] MEDS: GABAPENTIN 100 MG CAPSULE PO SCH (08:14)
[2019-10-11] MEDS: MIRALAX 17 GM POWD.PACK PO SCH (08:14)
[2019-10-11] MEDS: HYDROCHLOROTHIAZIDE 12.5 MG CAPSULE PO SCH (08:14)
[2019-10-11] MEDS: CHOLECALCIFEROL 1,000 UNIT TABLET PO SCH (08:15)
[2019-10-11] MEDS: METFORMIN HCL 500 MG TABLET PO SCH (08:15)
[2019-10-11] MEDS: FERROUS GLUCONATE 324 MG TABLET PO SCH (08:15)
[2019-10-11] MEDS: AMLODIPINE 5 MG TABLET PO SCH (08:16)
[2019-10-11] MEDS: FOLIC ACID 1 MG TABLET PO SCH (08:16)
[2019-10-11] MEDS: DOCUSATE SODIUM 100 MG CAPSULE PO SCH (08:16)
[2019-10-11 08:17] VITALS: BP 107/71
[2019-10-11] MEDS: LISINOPRIL 10 MG TABLET PO SCH (08:17)
[2019-10-11] MEDS: PYRIDOXINE HCL 100 MG TABLET PO SCH (08:26)
[2019-10-11] MEDS: ACETAMINOPHEN 325 MG TABLET PO PRN (13:08)
--- NOTE | 2019-10-11 15:36 | NUR ---
Patient discharge around 230pm in stable condition via stretcher in ambulance. Medication instruction, prescription given. fax to pharmacy. Discharge FF UP consult given. verbalize understanding. not in distress. surgery picture taken. Thankful for the care given. MD Moore and MD Puga given.
== END 2019-10-11 14:30 | disposition home health service (06) | DRG 559 ==
PROVIDERS: ADMIT Physical Medicine & Rehabilitation Pain Medicine; ATTEND Physical Medicine & Rehabilitation Pain Medicine
DX: Z47.89 Encounter for other orthopedic aftercare (principal); E43 Unspecified severe protein-calorie malnutrition; D68.59 Other primary thrombophilia; N39.0 Urinary tract infection, site not specified; D49.7 Neoplasm of unspecified behavior of endocrine glands and other parts of nervous system; Z91.013 Allergy to seafood; M54.12 Radiculopathy, cervical region; Z96.653 Presence of artificial knee joint, bilateral; I10 Essential (primary) hypertension; E03.9 Hypothyroidism, unspecified; R26.81 Unsteadiness on feet; D50.9 Iron deficiency anemia, unspecified; E11.649 Type 2 diabetes mellitus with hypoglycemia without coma; D63.8 Anemia in other chronic diseases classified elsewhere; E78.5 Hyperlipidemia, unspecified; Z79.899 Other long term (current) drug therapy; R33.9 Retention of urine, unspecified
CPT/HCPCS: 36415; 70030-TC; 82652; 83550; 83735; 84100; 84443; 85025; 87086; 93005; J1650; J1815